=== PATIENT | male | born 1945 | race Caucasian/White ===

== ENCOUNTER 2025-03-20 11:53 | Outpatient (AMB) | payer OTHER, SELFPAY ==
--- NOTE | 2025-03-20 12:14 | A.OFFVIS_ITS ---
Intake Visit Reasons: 6 months Allergies No Known Allergies Allergy (Verified 03/15/25 18:59) Medication List - Last Reconciled 03/20/25 by Arely Henry MD amlodipine 5 mg PO DAILY gabapentin 300 mg PO BID hydrocortisone 10 mg PO QAM latanoprost 0.005% 1 drp ophthalmic (eye) BEDTIME levothyroxine 75 mcg PO DAILY sitagliptin phosphate (Januvia) 50 mg PO DAILY HPI Comments Details: 79 yo LH man with HTN, pitutary tumor surgery, and BET, who had a stroke causing bleed in December of 2020 when he was admitted in [facility] in [place]. He had a blood clot removed by surgery. 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 He was here neuropatic foot pain. Foot pain is still there and gabaentin was helping. It does not make the pain go away but controls it. He was doing okay. He was taking gabapentin twice a day and was not taking Keppra. [facility] Medical History (Updated 03/20/25 @ 12:16 by Arely Henry MD) Pituitary tumor Obesity Intracerebral hemorrhage Stroke Hypertension Surgical History (Updated 03/20/25 @ 12:16 by Arely Henry MD) H/O craniotomy Assessment & Plan Assessment & Plan (1) Neuropathic pain: Code(s): M79.2 - Neuralgia and neuritis, unspecified Category: Medical Plan: This was controlled with gabapentin 300 mg twice a day. (2) Tremor: Code(s): R25.1 - Tremor, unspecified Category: Medical Plan: Tremor was mild at did not require any medicine at this time. Plan He was not having any seizures and not taking levetiracetam. If this happens again, medicine can be restarted. Medications: New gabapentin 300 mg PO BID 180 caps 1RF Coding Level of Care Code Est Pt Level 4 (69091) Diagnoses Neuropathic pain M79.2 Tremor R25.1
--- OUTSIDE RECORDS SUMMARY | 2025-03-20 12:45 | XMS_ITS | Clinical Summary ---
Author Organization [facility] Address [address] [place] [address] Care Team Providers Care Flower Grader Name Role Phone Unavailable Primary Care Provider Unavailabl e Allergies No known active allergies Medications Medication Sig Dispensed Refills Start Date End Date Status acetaminophen (TYLENOL) 160 MG/5ML solution place 20.3 mL (650 mg total) into G Tube every 6 (six) hours. 120 mL 0 12/09/2020 Active amiodarone (PACERONE) [address] 1 tablet (200 mg total) into G Tube daily. 60 tablet 0 12/10/2020 Active amLODIPine (NORVASC) tablet [address] 1 tablet (10 mg total) into G Tube daily. 30 tablet 0 12/10/2020 Active docusate sodium (COLACE) 50 MG/5ML liquid place 10 mL (100 mg total) into G Tube 2 (two) times a day. 100 mL 0 12/09/2020 Active levETIRAcetam (KEPPRA) 100 MG/ML solution place 5 mL (500 mg total) into G Tube every 12 (twelve) hours. 473 mL 12 12/09/2020 Active levothyroxine (SYNTHROID, LEVOXYL) tablet [address] 1 tablet (75 mcg total) into G Tube every morning on an empty stomach. 30 tablet 0 12/10/2020 Active hydrocortisone (CORTEF) tablet [address] 1 tablet (10 mg total) into G Tube daily. 30 tablet 3 12/11/2020 Active hydrocortisone (CORTEF) tablet [address] 1 tablet (5 mg total) into G Tube every night at bedtime. 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 S/P craniotomy 12/09/2020 S/P percutaneous endoscopic gastrostomy (PEG) tube placement 12/09/2020 Atrial fibrillation, chronic 12/09/2020 TIA (transient ischemic attack) 12/09/2020 Subarachnoid bleed 12/01/2020 Social History Tobacco Use Types Packs/Day Years Used Date Smoking Tobacco: Never Assessed Tobacco Cessation:Counseling Given: No Alcohol Use Standard Drinks/Week Comments No 0 (1 standard drink = 0.6 oz pur e alcohol) Sex and Gender Information Value Date Recorded Sex Assigned at Male 12/01/2020 9:16 PM EDT Gender Identity Male 12/01/2020 9:16 PM EDT Sexual Orientation Not on file Job Start Date Occupation Industry Not on file Not on file Not on file Last Filed Vital Signs Vital Sign Reading Time Taken Comments Blood Pressure 120/72 04/23/2021 10:45 AM EDT Pulse 71 04/23/2021 10:45 AM EDT Temperature 37.1 C (98.7 F) 04/23/2021 10:45 AM EDT Respiratory Rate 18 01/01/2021 10:28 AM EDT Oxygen Saturation 98% 04/23/2021 10:45 AM EDT Inhaled Oxygen Concentration - - Weight 116.1 kg (256 lb) 04/23/2021 10:45 AM EDT Height 193 cm (6' 4 ) 04/23/2021 10:45 AM EDT Body Mass Index 31.16 04/23/2021 10:45 AM EDT Plan of Treatment Health Maintenance Due Date Last Done Comments Hepatitis C Screening 1945 COVID-19 Vaccine (#1) 04[birth year]28/1946 Pneumococcal Vaccine (1 of 2 - PCV) 1953 Depression Screening 1959 BMI Counseling 1965 Preventative Health Evaluation 1965 DTap / Tdap / Td (1 - Tdap) 1966 Shingrix-Zoster Vaccine (1 of 2) 1997 Fall Risk Assessment 2012 RSV Adult > 60+ Yrs or Pregn ant (1 - 1-dose 75+ series) 2022 Influenza Vaccine (Season Ended) 2025 Hepatitis B Vaccines Aged Out No long er eligible based on patient's age to complete this topic RSV Ped < 20 months Aged Out No longe r eligible based on patient's age to complete this topic Medical Devices Implanted Type Area Inside Sales Coordinator Device Identifier Shelf Expiration Date Model / Serial / Lot Sponge Surgiflo 8ml Hemostatic Matrix Absorbable Latex Free - [id number] - [id number] Implanted:Qty : 2 on 12/02/2020 by Charles Frank MD at [facility] [place] [facility] and Med Hemostatic Agent Left: Cranial [employer] 05/14/2022 [id number] / / [id number] Cellulose Surgicel 2x1in Absorbable Hemostatic Agent - [id number] - [id number] Implanted:Qty : 1 on 12/02/2020 by Charles Frank MD at [facility] [place] and Med Hemostatic Agent Left: Cranial [employer] 12/12/2022 1961 / / [id number] Cellulose Surgicel 2x1in Absorbable Hemostatic Agent - [id number] - [id number] Implanted:Qty : 1 on 12/02/2020 by Charles Frank MD at [facility] [place] and Med Hemostatic Agent Left: Cranial [employer] - A [employer] 04/13/2022 1961 / / [id number] Cover Ringgold Hole Condon Neuro Iii Low Profile Od10 Mm - [id number] - [id number] Implanted:Qty : 1 on 12/02/2020 by Charles Frank MD at [facility] [place] and Med Left: Cranial FRANK DEXBINGER [id number] / / Cover Ringgold Hole Condon Neuro Iii Low Profile Od14 Mm - [id number] - [id number] Implanted:Qty : 3 on 12/02/2020 by Charles Frank MD at [facility] [place] and Med Left: Cranial FRANK ARMANDER [id number] / / Duramatrix Onlay Plus 3x3 - [id number] - [id number] Implanted:Qty : 1 on 12/02/2020 by Charles Frank MD at [facility] and Med Left: Cranial FRANK MARY 06/13/2023 [id number] / / [id number] Screw Condon Neuro 3 4mm 1.5mm Self Drill Axial Stability - [id number] - [id number] Implanted:Qty : 16 on 12/02/2020 by Charles Frank MD at [facility] Left: Cranial [employer] [id number] / / Advance Directives For more information, please contact: [phone] Latest Code Status on File Code Status Date Activated Date Inactivated Comments Full Code 12/06/2020 6:08 PM 12/12/2020 12:12 AM This code status was ascertained in the following way: Discussion with patient . Code Status History Code Status Date Activated Date Inactivated Comments Full Code 12/01/2020 8:09 PM 12/06/2020 5:18 PM This code status was ascertained in the following way: discussion with patient .
--- OUTSIDE RECORDS SUMMARY | 2025-03-20 12:45 | XMS_ITS | Clinical Summary ---
Author Organization [facility] Address [address] [place] [address] Care Team Providers Care Service Department Manager Name Role Phone Unavailable Primary Care Provider Unavailabl e Allergies No known active allergies Medications ibuprofen 600 MG tabletIndication s:Impacted third molar tooth,Dental caries Take 1 tablet (600 mg) by mouth every 6 (six) hours if needed for mild pain for up to 20 doses. 20 tablet 11/07/2022 Active Social History Tobacco Use Types Packs/Day Years Used Date Smoking Tobacco: Never Assessed Comments Unknown Sex and Gender Information Value Date Recorded Sex Assigned at Unknown 11/07/2022 8:36 AM EST Legal Sex Male 8:26 AM EST Gender Identity Other 11/07/2022 8:36 AM EST Sexual Orientation Don't know 11/07/2022 8: 36 AM EST Plan of Treatment Health Maintenance Due Date Last Done Comments Dental Oral Exam 1945 Dental Prophylaxis 1945 Dental X-Ray: Bitewings 1945 Depression Screening 1947 Lipid Panel 1945 SDOH Screening 1947 Alcohol/Substance Use Screening 1959 Tobacco Screening 1959 Hepatitis C Screening 1965 Zoster Vaccines (1 of 2) 1997 Pneumococcal Vaccine: 50+ Years (2 of 2 - PPSV23) 06/25/2022 06/25/2021 RSV Patients and Patients Aged 60 years or older (1 - 1-dose 75+ series) 2022 COVID-19 Vaccine ( - season) 2024 02/04/2022, 02/06/2021, 12/19/2020, Additional history exists Influenza Vaccine (#1) 2025 06/25/2021, 2019 Dental X-Ray: Full Mouth 11/08/2025 11/07/2022 DTaP/Tdap/Td Vaccines (2 - Td or Tdap) 06/25/2031 06/25/2021 HIB Vaccines Aged Out No longer eligi ble based on patient's age to complete this topic HPV Vaccines Aged Out No longer eligi ble based on patient's age to complete this topic Hepatitis A Vaccines Aged Out No long er eligible based on patient's age to complete this topic Hepatitis B Vaccines Aged Out No long er eligible based on patient's age to complete this topic IPV Vaccines Aged Out No longer eligi ble based on patient's age to complete this topic Meningococcal B Vaccine Aged Out No l onger eligible based on patient's age to complete this topic Meningococcal Vaccine Aged Out No evelyn aren eligible based on patient's age to complete this topic RSV under 20 months Aged Out No longe r eligible based on patient's age to complete this topic Rotavirus Vaccines Aged Out No longer eligible based on patient's age to complete this topic Procedures Procedure Name Priority Date/Time Associated Diagnosis Comments PANORAMIC RADIOGRAPHIC IMAGE Routine 11/07/2022 10:00 AM EST Impacted third molar tooth Dental caries from Last 3 Months or Most Recently Relevant to Health Maintenance [facility] ADULT
--- OUTSIDE RECORDS SUMMARY | 2025-03-20 12:45 | XMS_ITS | Patient Health Record ---
Author Organization [facility] Address [address] [place] [address] Care Team Providers Care Pattern Room Attendant Name Role Phone KIZZY MORALESALBERTO Primary Care Provider Unavailabl e REMY MORALES Unavailable [phone] Germán Schneider Unavailable [phone] Allergies No Known Allergies Results Component Value Reference Range Notes Hemoglobin [id number] Reviewed date:02/18/2025 08:23:27 AM Interpretation: Performing Lab:[facility], [address] [facility], Phone - [phone], Director - Jessica Notes/Report: Hemoglobin A1c 6.4 4.8-5.6 % . Prediabetes: 5.7 - 6.4 Diabetes: >6.4 Glycemic control for adults with diabetes: <7.0 Lipid Panel-[id number] Reviewed date:02/18/2025 08:23:41 AM Interpretation: Performing Lab:[facility], [address] [facility], Phone - [phone], Director - Jessica Notes/Report: Cholesterol, Total 131 100-199 mg/dL Triglycerides 151 0-149 mg/dL HDL Cholesterol 44 >39 mg/dL VLDL Cholesterol Real 26 5-40 mg/dL LDL Chol Calc ([facility]) 61 0-99 mg/dL Hemoglobin [id number] Reviewed date:07/20/2024 07:44:04 AM Interpretation: Performing Lab:[facility], [address] [facility], Phone - [phone], Director - Jessica Notes/Report: Hemoglobin A1c 6.6 4.8-5.6 % . Prediabetes: 5.7 - 6.4 Diabetes: >6.4 Glycemic control for adults with diabetes: <7.0 TSH+Free [id number] Reviewed date:07/20/2024 07:44:06 AM Interpretation: Performing Lab:[facility], [address] [place] [address], Phone - [phone], Director - Jessica Notes/Report: TSH 1.010 0.450-4.500 uIU/mL T4,Free([facility]) 1.01 0.82-1.77 ng/dL Lipid Panel-[id number] Reviewed date:07/20/2024 07:44:09 AM Interpretation: Performing Lab:[facility], [address] [place] [address], Phone - [phone], Director - Jessica Notes/Report: Cholesterol, Total 141 100-199 mg/dL Triglycerides 409 0-149 mg/dL HDL Cholesterol 38 >39 mg/dL VLDL Cholesterol Real 60 5-40 mg/dL LDL Chol Calc ([facility]) 43 0-99 mg/dL Comp. Metabolic Panel ([id number] Reviewed date:07/20/2024 07:44:11 AM Interpretation: Performing Lab:[facility], [address] [place] [address], Phone - [phone], Director - Jessica Notes/Report: Glucose 116 70-99 mg/dL BUN 9 8-27 mg/dL Creatinine 1.16 0.76-1.27 mg/dL eGFR 65 >59 mL/min/1.73 BUN/Creatinine Ratio 8 10-24 Sodium 145 134-144 mmol/L Potassium 4.4 3.5-5.2 mmol/L Chloride 105 96-106 mmol/L Carbon Dioxide, Total 23 20-29 mmol/L Calcium 10.3 8.6-10.2 mg/dL Protein, Total 7.2 6.0-8.5 g/dL Albumin 4.3 3.8-4.8 g/dL Globulin, Total 2.9 1.5-4.5 g/dL Bilirubin, Total 0.6 0.0-1.2 mg/dL Alkaline Phosphatase 115 44-121 IU/L AST (SGOT) 25 0-40 IU/L ALT (SGPT) 14 0-44 IU/L Albumin/Creatinine Ratio,Uri ne-[id number] Reviewed date:07/20/2024 07:44:20 AM Interpretation: Performing Lab:[facility], [address] [place], [place] [address], Phone - [phone], Director - Jessica Notes/Report: Creatinine, Urine 173.1 Not Estab. mg/dL Albumin, Urine 33.8 Not Estab. ug/mL Alb/Creat Ratio 20 0-29 mg/g creat Normal: 0 - 29 Moderately increased: 30 - 300 Severely increased: >300 Reason For Referral No Information Medications Medication SIG (Take, Route, Frequency, Duration) Notes Start Date End Date Status Ezetimibe 10 MG 1 tablet Orally Once a day; Duration: 90 days 10/27/2024 Active amLODIPine Besylate 5 MG 1 tablet Orally Once a day; Duration: 90 days Active Levothyroxine Sodium 75 MCG 1 tablet in the morning on an empty stomach Orally Once a day Active Gabapentin 300 MG 1 capsule Orally twi ce a day Active Hydrocortisone 10 MG 1 tablet with food or milk Orally ONCE DAILY Active levETIRAcetam 250 MG 1 tablet Orally AT BEDTIME Not-Taking Immunizations Vaccine Route Administration Date Status Comme nts Fluzone High Dose 55589 IM Intramuscular 06/28/2024 Admini stered Social History Tobacco Use: Social History Observation Description Date Details (start date - stop date) Never Smoker NA - NA Tobacco Use/Smoking Question Answer Notes Are you a nonsmoker Problems Problem Type SNOMED Code ICD Code Onset Dates Problem Status W/U Status Risk Notes Problem Hypothyroidism (15926776) Hypothyroidism, unspecified (E03.9) Active confirmed Problem Disorder due to type 2 diabetes mellitus (634343767) Type 2 diabetes mellitus with unspecified complications (E11.8) Active confirmed Problem Hypopituitarism (83067409) 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) Active confirmed Problem Mixed hyperlipidemia (616622232) Mixed hyperlipidemia (E78.2) Active confirmed Problem Seizure (finding) (24481213) Other seizures (G40.89) Active confirmed Problem Cerebral infarction (856368707) Cerebral infarction, unspecified (I63.9) Active confirmed Problem Gout (79297867) Gout, unspecifie d (M10.9) Active confirmed Problem Chronic kidney disease (524085914) Chronic kidney disease, unspecified (N18.9) Active confirmed Problem Electroencephalogram abnormal (859312877) Abnormal electroencephalogram [EEG] (R94.01) Active confirmed Problem Essential hypertension (22830515) Essential (primary) hypertension (I10) Active confirmed Vital Signs Heart Rate 94 /min 02/24/2025 Temperature 97.3 degrees Fahrenheit 02/24/2025 Oximetry 99 % 02/24/2025 Blood pressure diastolic 80 mm Hg 02/24/2025 Height 6'4'' in 02/24/2025 Blood pressure systolic 118 mm Hg 02/24/2025 Weight 281.4 lbs 02/24/2025 BMI 34.25 kg/m2 02/24/2025 Encounters Encounter Location Date Provider Diagnosis [address] [place] [address] 06/28/2024 REMY MORALES Type 2 diabetes kilo itus with unspecified complications E11.8 ; Hypopituitarism E23.0 ; Essential (primary) hypertension I10 ; Hypothyroidism, unspecified E03.9 and Encounter for immunization Z23 [address] [place] [address] 10/27/2024 REMY MORALES Type 2 diabetes kilo itus with unspecified complications E11.8 ; Hypopituitarism E23.0 ; Essential (primary) hypertension I10 ; Mixed hyperlipidemia E78.2 and Hypothyroidism, unspecified E03.[address] [place] [address] 02/24/2025 Germán Schneider Hypopituitarism E23. 0 ; Essential (primary) hypertension I10 ; Abnormal electroencephalogram [EEG] R94.01 ; Type 2 diabetes mellitus with unspecified complications E11.8 ; Mixed hyperlipidemia E78.2 and Hypothyroidism, unspecified E03.[address] [place] [address] 06/28/2024 REMY MORALES [address] [place] [address] 02/10/2025 REMY MORALES Assessments Encounter Date Diagnosis (ICD Code) Assessment Notes Treatment Notes Treatment Clinical Notes Section Notes 06/28/2024 Type 2 diabetes mellitus with unspecified complications (ICD-10 - E11.8) Mr. Loza is a 78-year-old gentleman with hypopituitarism, CVA, type 2 DM diet controlled, hypertension and hypothyroidism here to establish care. Records are not available at this point and history taken from patient who is not a good historian. 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 He is on hydrocortisone 10 mg 1 tablet daily along with levothyroxine 75 mcg daily. Type II diabetes mellitus. He is not on DM medications at this point and his last A1c was 6.1. He has seen an pile driver operator for the past year. Foot care discussed. check A1c. Hypertension. Blood pressure well controled on amlodipine 5 MG once a day. Hypothyroidism. Continue Levothyroxine 75 MCG and advised to take it first thing in the morning on an empty stomach. CVA. No residual deficit. She is currently not on aspirin or statins. Blood pressure well controlled. Peripheral neuropathy. Currently on Keppra and gabapentin and symptoms are well controlled. Class 2 obesity. Advised dietary restrictions and regimental exercise. Goal is to lose 5-6 lbs a month. Eye screening. He sees his pile driver operator regularly. Skin cancer screening. He sees his stonework supervisor regularly. Immunizations. Flu shot administered in the office today. Advance directive. He is on full code and his HCP is his son Mike Loza- [phone] Screening blood work before next appointment. General health concerns discussed with patient. Scribe services used to formulate this note under HIPAA compliance and under [place] law mandated for scribe services. Patient aware of service. Verbal consent and written consent taken from the patient. Patient understands and verbalizes understanding of the scribes services and all questions answered regarding scribes services. Patient agrees to use of scribes services. 06/28/2024 Hypopituitarism (ICD-10 - E23.0) Mr. Loza is a 78-year-old gentleman with hypopituitarism, CVA, type 2 DM diet controlled, hypertension and hypothyroidism here to establish care. Records are not available at this point and history taken from patient who is not a good historian. 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 He is on hydrocortisone 10 mg 1 tablet daily along with levothyroxine 75 mcg daily. Type II diabetes mellitus. He is not on DM medications at this point and his last A1c was 6.1. He has seen an pile driver operator for the past year. Foot care discussed. check A1c. Hypertension. Blood pressure well controled on amlodipine 5 MG once a day. Hypothyroidism. Continue Levothyroxine 75 MCG and advised to take it first thing in the morning on an empty stomach. CVA. No residual deficit. She is currently not on aspirin or statins. Blood pressure well controlled. Peripheral neuropathy. Currently on Keppra and gabapentin and symptoms are well controlled. Class 2 obesity. Advised dietary restrictions and regimental exercise. Goal is to lose 5-6 lbs a month. Eye screening. He sees his pile driver operator regularly. Skin cancer screening. He sees his stonework supervisor regularly. Immunizations. Flu shot administered in the office today. Advance directive. He is on full code and his HCP is his son Mike Loza- [phone] Screening blood work before next appointment. General health concerns discussed with patient. Scribe services used to formulate this note under HIPAA compliance and under [place] law mandated for scribe services. Patient aware of service. Verbal consent and written consent taken from the patient. Patient understands and verbalizes understanding of the scribes services and all questions answered regarding scribes services. Patient agrees to use of scribes services. 10/27/2024 Type 2 diabetes mellitus with unspecified complications (ICD-10 - E11.8) Mr. Loza is a 78-year-old gentleman with hypopituitarism, CVA, type 2 DM diet controlled, hypertension and hypothyroidism here to establish care. Records are not available at this point and history taken from patient who is not a good historian. 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 He is on hydrocortisone 10 mg 1 tablet daily along with levothyroxine 75 mcg daily. Type II diabetes mellitus. He is not on DM medications at this point and his last A1c was 6.6 and fasting sugars are 116. He has seen an pile driver operator for the past year. Foot care discussed. check A1c. Mixed hyperlipidemia. His total cholesterol and LDL cholesterol are within recommended range but his triglycerides are 409. Started on Zetia 10 mg daily and recheck lipid panel in 3-6 months Hypertension. Blood pressure well controled on amlodipine 5 MG once a day. Hypothyroidism. Continue Levothyroxine 75 MCG and advised to take it first thing in the morning on an empty stomach. CVA. No residual deficit. She is currently not on aspirin or statins. Blood pressure well controlled. He follows Dr. Henry Peripheral neuropathy. Currently on Keppra and gabapentin and symptoms are well controlled. Class 2 obesity. Advised dietary restrictions and regimental exercise. Goal is to lose 5-6 lbs a month. Eye screening. He sees his pile driver operator regularly. Skin cancer screening. He sees his stonework supervisor regularly. Advance directive. He is on full code and his HCP is his son Mike Loza- [phone] Screening blood work before next appointment. General health concerns discussed with patient. 10/27/2024 Hypopituitarism (ICD-10 - E23.0) Mr. Loza is a 78-year-old gentleman with hypopituitarism, CVA, type 2 DM diet controlled, hypertension and hypothyroidism here to establish care. Records are not available at this point and history taken from patient who is not a good historian. 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 He is on hydrocortisone 10 mg 1 tablet daily along with levothyroxine 75 mcg daily. Type II diabetes mellitus. He is not on DM medications at this point and his last A1c was 6.6 and fasting sugars are 116. He has seen an pile driver operator for the past year. Foot care discussed. check A1c. Mixed hyperlipidemia. His total cholesterol and LDL cholesterol are within recommended range but his triglycerides are 409. Started on Zetia 10 mg daily and recheck lipid panel in 3-6 months Hypertension. Blood pressure well controled on amlodipine 5 MG once a day. Hypothyroidism. Continue Levothyroxine 75 MCG and advised to take it first thing in the morning on an empty stomach. CVA. No residual deficit. She is currently not on aspirin or statins. Blood pressure well controlled. He follows Dr. Henry Peripheral neuropathy. Currently on Keppra and gabapentin and symptoms are well controlled. Class 2 obesity. Advised dietary restrictions and regimental exercise. Goal is to lose 5-6 lbs a month. Eye screening. He sees his pile driver operator regularly. Skin cancer screening. He sees his stonework supervisor regularly. Advance directive. He is on full code and his HCP is his son Mike Loza- [phone] Screening blood work before next appointment. General health concerns discussed with patient. 02/24/2025 Hypopituitarism (ICD-10 - E23.0) Mr. Loza is a 79-year-old gentleman with hypopituitarism, CVA, type 2 DM diet controlled, hypertension and hypothyroidism here for follow-up. 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 He is on hydrocortisone 10 mg 1 tablet daily along with levothyroxine 75 mcg daily. Type II diabetes mellitus. He is not on DM medications at this point, Previous a1c was 6.6 improved to 6.4 and fasting sugars are 116. He has seen an pile driver operator for the past year. Foot care discussed. check A1c. Mixed hyperlipidemia. His total cholesterol and LDL cholesterol are within recommended range. Improved Trigs. continue on Zetia and diet modification. Hypertension. Blood pressure well controled on amlodipine 5 MG once a day. Hypothyroidism. Continue Levothyroxine 75 MCG and advised to take it first thing in the morning on an empty stomach. CVA. No residual deficit. She is currently not on aspirin or statins. Blood pressure well controlled. He follows Dr. Henry Peripheral neuropathy. Currently off Keppra. Continue on gabapentin and symptoms are well controlled. Class 2 obesity. Advised dietary restrictions and regimental exercise. Goal is to lose 5-6 lbs a month. Abnormal EKG: Deniens any palpitations, chest pain, dizziness. EKG shows a heart rate of 65 bpm, no ST elevation or depression. No bundle branch block. T wave inversions are noted in lead V4 and V5. No previous EKG to compare with. We will obtain stress echo. Recent blood work has been discussed with the patient General health concerns discussed with patient. Content of this note has been dictated using voice recognition software. Despite multiple revisions, Errors may persist I have rendered the services for this patient under direct supervision of Dr. Morales, who did not see the patient but was available upon request 02/24/2025 Essential (primary) hypertension (ICD-10 - I10) Mr. Loza is a 79-year-old gentleman with hypopituitarism, CVA, type 2 DM diet controlled, hypertension and hypothyroidism here for follow-up. 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 He is on hydrocortisone 10 mg 1 tablet daily along with levothyroxine 75 mcg daily. Type II diabetes mellitus. He is not on DM medications at this point, Previous a1c was 6.6 improved to 6.4 and fasting sugars are 116. He has seen an pile driver operator for the past year. Foot care discussed. check A1c. Mixed hyperlipidemia. His total cholesterol and LDL cholesterol are within recommended range. Improved Trigs. continue on Zetia and diet modification. Hypertension. Blood pressure well controled on amlodipine 5 MG once a day. Hypothyroidism. Continue Levothyroxine 75 MCG and advised to take it first thing in the morning on an empty stomach. CVA. No residual deficit. She is currently not on aspirin or statins. Blood pressure well controlled. He follows Dr. Henry Peripheral neuropathy. Currently off Keppra. Continue on gabapentin and symptoms are well controlled. Class 2 obesity. Advised dietary restrictions and regimental exercise. Goal is to lose 5-6 lbs a month. Abnormal EKG: Deniens any palpitations, chest pain, dizziness. EKG shows a heart rate of 65 bpm, no ST elevation or depression. No bundle branch block. T wave inversions are noted in lead V4 and V5. No previous EKG to compare with. We will obtain stress echo. Recent blood work has been discussed with the patient General health concerns discussed with patient. Content of this note has been dictated using voice recognition software. Despite multiple revisions, Errors may persist I have rendered the services for this patient under direct supervision of Dr. Morales, who did not see the patient but was available upon request 02/24/2025 Abnormal electroencephalogram [EEG] (ICD-10 - R94.01) Mr. Loza is a 79-year-old gentleman with hypopituitarism, CVA, type 2 DM diet controlled, hypertension and hypothyroidism here for follow-up. 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 He is on hydrocortisone 10 mg 1 tablet daily along with levothyroxine 75 mcg daily. Type II diabetes mellitus. He is not on DM medications at this point, Previous a1c was 6.6 improved to 6.4 and fasting sugars are 116. He has seen an pile driver operator for the past year. Foot care discussed. check A1c. Mixed hyperlipidemia. His total cholesterol and LDL cholesterol are within recommended range. Improved Trigs. continue on Zetia and diet modification. Hypertension. Blood pressure well controled on amlodipine 5 MG once a day. Hypothyroidism. Continue Levothyroxine 75 MCG and advised to take it first thing in the morning on an empty stomach. CVA. No residual deficit. She is currently not on aspirin or statins. Blood pressure well controlled. He follows Dr. Henry Peripheral neuropathy. Currently off Keppra. Continue on gabapentin and symptoms are well controlled. Class 2 obesity. Advised dietary restrictions and regimental exercise. Goal is to lose 5-6 lbs a month. Abnormal EKG: Deniens any palpitations, chest pain, dizziness. EKG shows a heart rate of 65 bpm, no ST elevation or depression. No bundle branch block. T wave inversions are noted in lead V4 and V5. No previous EKG to compare with. We will obtain stress echo. Recent blood work has been discussed with the patient General health concerns discussed with patient. Content of this note has been dictated using voice recognition software. Despite multiple revisions, Errors may persist I have rendered the services for this patient under direct supervision of Dr. Morales, who did not see the patient but was available upon request 10/27/2024 Essential (primary) hypertension (ICD-10 - I10) Mr. Loza is a 78-year-old gentleman with hypopituitarism, CVA, type 2 DM diet controlled, hypertension and hypothyroidism here to establish care. Records are not available at this point and history taken from patient who is not a good historian. 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 He is on hydrocortisone 10 mg 1 tablet daily along with levothyroxine 75 mcg daily. Type II diabetes mellitus. He is not on DM medications at this point and his last A1c was 6.6 and fasting sugars are 116. He has seen an pile driver operator for the past year. Foot care discussed. check A1c. Mixed hyperlipidemia. His total cholesterol and LDL cholesterol are within recommended range but his triglycerides are 409. Started on Zetia 10 mg daily and recheck lipid panel in 3-6 months Hypertension. Blood pressure well controled on amlodipine 5 MG once a day. Hypothyroidism. Continue Levothyroxine 75 MCG and advised to take it first thing in the morning on an empty stomach. CVA. No residual deficit. She is currently not on aspirin or statins. Blood pressure well controlled. He follows Dr. Henry Peripheral neuropathy. Currently on Keppra and gabapentin and symptoms are well controlled. Class 2 obesity. Advised dietary restrictions and regimental exercise. Goal is to lose 5-6 lbs a month. Eye screening. He sees his pile driver operator regularly. Skin cancer screening. He sees his stonework supervisor regularly. Advance directive. He is on full code and his HCP is his son Mike Loza- [phone] Screening blood work before next appointment. General health concerns discussed with patient. 06/28/2024 Essential (primary) hypertension (ICD-10 - I10) Mr. Loza is a 78-year-old gentleman with hypopituitarism, CVA, type 2 DM diet controlled, hypertension and hypothyroidism here to establish care. Records are not available at this point and history taken from patient who is not a good historian. 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 He is on hydrocortisone 10 mg 1 tablet daily along with levothyroxine 75 mcg daily. Type II diabetes mellitus. He is not on DM medications at this point and his last A1c was 6.1. He has seen an pile driver operator for the past year. Foot care discussed. check A1c. Hypertension. Blood pressure well controled on amlodipine 5 MG once a day. Hypothyroidism. Continue Levothyroxine 75 MCG and advised to take it first thing in the morning on an empty stomach. CVA. No residual deficit. She is currently not on aspirin or statins. Blood pressure well controlled. Peripheral neuropathy. Currently on Keppra and gabapentin and symptoms are well controlled. Class 2 obesity. Advised dietary restrictions and regimental exercise. Goal is to lose 5-6 lbs a month. Eye screening. He sees his pile driver operator regularly. Skin cancer screening. He sees his stonework supervisor regularly. Immunizations. Flu shot administered in the office today. Advance directive. He is on full code and his HCP is his son Mike Loza- [phone] Screening blood work before next appointment. General health concerns discussed with patient. Scribe services used to formulate this note under HIPAA compliance and under [place] law mandated for scribe services. Patient aware of service. Verbal consent and written consent taken from the patient. Patient understands and verbalizes understanding of the scribes services and all questions answered regarding scribes services. Patient agrees to use of scribes services. 10/27/2024 Mixed hyperlipidemia (ICD-10 - E78.2) Mr. Loza is a 78-year-old gentleman with hypopituitarism, CVA, type 2 DM diet controlled, hypertension and hypothyroidism here to establish care. Records are not available at this point and history taken from patient who is not a good historian. 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 He is on hydrocortisone 10 mg 1 tablet daily along with levothyroxine 75 mcg daily. Type II diabetes mellitus. He is not on DM medications at this point and his last A1c was 6.6 and fasting sugars are 116. He has seen an pile driver operator for the past year. Foot care discussed. check A1c. Mixed hyperlipidemia. His total cholesterol and LDL cholesterol are within recommended range but his triglycerides are 409. Started on Zetia 10 mg daily and recheck lipid panel in 3-6 months Hypertension. Blood pressure well controled on amlodipine 5 MG once a day. Hypothyroidism. Continue Levothyroxine 75 MCG and advised to take it first thing in the morning on an empty stomach. CVA. No residual deficit. She is currently not on aspirin or statins. Blood pressure well controlled. He follows Dr. Henry Peripheral neuropathy. Currently on Keppra and gabapentin and symptoms are well controlled. Class 2 obesity. Advised dietary restrictions and regimental exercise. Goal is to lose 5-6 lbs a month. Eye screening. He sees his pile driver operator regularly. Skin cancer screening. He sees his stonework supervisor regularly. Advance directive. He is on full code and his HCP is his son Mike Loza- [phone] Screening blood work before next appointment. General health concerns discussed with patient. 06/28/2024 Hypothyroidism, unspecified (ICD-10 - E03.9) Mr. Loza is a 78-year-old gentleman with hypopituitarism, CVA, type 2 DM diet controlled, hypertension and hypothyroidism here to establish care. Records are not available at this point and history taken from patient who is not a good historian. 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 He is on hydrocortisone 10 mg 1 tablet daily along with levothyroxine 75 mcg daily. Type II diabetes mellitus. He is not on DM medications at this point and his last A1c was 6.1. He has seen an pile driver operator for the past year. Foot care discussed. check A1c. Hypertension. Blood pressure well controled on amlodipine 5 MG once a day. Hypothyroidism. Continue Levothyroxine 75 MCG and advised to take it first thing in the morning on an empty stomach. CVA. No residual deficit. She is currently not on aspirin or statins. Blood pressure well controlled. Peripheral neuropathy. Currently on Keppra and gabapentin and symptoms are well controlled. Class 2 obesity. Advised dietary restrictions and regimental exercise. Goal is to lose 5-6 lbs a month. Eye screening. He sees his pile driver operator regularly. Skin cancer screening. He sees his stonework supervisor regularly. Immunizations. Flu shot administered in the office today. Advance directive. He is on full code and his HCP is his son Mike Loza- [phone] Screening blood work before next appointment. General health concerns discussed with patient. Scribe services used to formulate this note under HIPAA compliance and under [place] law mandated for scribe services. Patient aware of service. Verbal consent and written consent taken from the patient. Patient understands and verbalizes understanding of the scribes services and all questions answered regarding scribes services. Patient agrees to use of scribes services. 02/24/2025 Type 2 diabetes mellitus with unspecified complications (ICD-10 - E11.8) Mr. Loza is a 79-year-old gentleman with hypopituitarism, CVA, type 2 DM diet controlled, hypertension and hypothyroidism here for follow-up. 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 He is on hydrocortisone 10 mg 1 tablet daily along with levothyroxine 75 mcg daily. Type II diabetes mellitus. He is not on DM medications at this point, Previous a1c was 6.6 improved to 6.4 and fasting sugars are 116. He has seen an pile driver operator for the past year. Foot care discussed. check A1c. Mixed hyperlipidemia. His total cholesterol and LDL cholesterol are within recommended range. Improved Trigs. continue on Zetia and diet modification. Hypertension. Blood pressure well controled on amlodipine 5 MG once a day. Hypothyroidism. Continue Levothyroxine 75 MCG and advised to take it first thing in the morning on an empty stomach. CVA. No residual deficit. She is currently not on aspirin or statins. Blood pressure well controlled. He follows Dr. Henry Peripheral neuropathy. Currently off Keppra. Continue on gabapentin and symptoms are well controlled. Class 2 obesity. Advised dietary restrictions and regimental exercise. Goal is to lose 5-6 lbs a month. Abnormal EKG: Deniens any palpitations, chest pain, dizziness. EKG shows a heart rate of 65 bpm, no ST elevation or depression. No bundle branch block. T wave inversions are noted in lead V4 and V5. No previous EKG to compare with. We will obtain stress echo. Recent blood work has been discussed with the patient General health concerns discussed with patient. Content of this note has been dictated using voice recognition software. Despite multiple revisions, Errors may persist I have rendered the services for this patient under direct supervision of Dr. Morales, who did not see the patient but was available upon request 02/24/2025 Mixed hyperlipidemia (ICD-10 - E78.2) Mr. Loza is a 79-year-old gentleman with hypopituitarism, CVA, type 2 DM diet controlled, hypertension and hypothyroidism here for follow-up. 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 He is on hydrocortisone 10 mg 1 tablet daily along with levothyroxine 75 mcg daily. Type II diabetes mellitus. He is not on DM medications at this point, Previous a1c was 6.6 improved to 6.4 and fasting sugars are 116. He has seen an pile driver operator for the past year. Foot care discussed. check A1c. Mixed hyperlipidemia. His total cholesterol and LDL cholesterol are within recommended range. Improved Trigs. continue on Zetia and diet modification. Hypertension. Blood pressure well controled on amlodipine 5 MG once a day. Hypothyroidism. Continue Levothyroxine 75 MCG and advised to take it first thing in the morning on an empty stomach. CVA. No residual deficit. She is currently not on aspirin or statins. Blood pressure well controlled. He follows Dr. Henry Peripheral neuropathy. Currently off Keppra. Continue on gabapentin and symptoms are well controlled. Class 2 obesity. Advised dietary restrictions and regimental exercise. Goal is to lose 5-6 lbs a month. Abnormal EKG: Deniens any palpitations, chest pain, dizziness. EKG shows a heart rate of 65 bpm, no ST elevation or depression. No bundle branch block. T wave inversions are noted in lead V4 and V5. No previous EKG to compare with. We will obtain stress echo. Recent blood work has been discussed with the patient General health concerns discussed with patient. Content of this note has been dictated using voice recognition software. Despite multiple revisions, Errors may persist I have rendered the services for this patient under direct supervision of Dr. Morales, who did not see the patient but was available upon request 10/27/2024 Hypothyroidism, unspecified (ICD-10 - E03.9) Mr. Loza is a 78-year-old gentleman with hypopituitarism, CVA, type 2 DM diet controlled, hypertension and hypothyroidism here to establish care. Records are not available at this point and history taken from patient who is not a good historian. 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 He is on hydrocortisone 10 mg 1 tablet daily along with levothyroxine 75 mcg daily. Type II diabetes mellitus. He is not on DM medications at this point and his last A1c was 6.6 and fasting sugars are 116. He has seen an pile driver operator for the past year. Foot care discussed. check A1c. Mixed hyperlipidemia. His total cholesterol and LDL cholesterol are within recommended range but his triglycerides are 409. Started on Zetia 10 mg daily and recheck lipid panel in 3-6 months Hypertension. Blood pressure well controled on amlodipine 5 MG once a day. Hypothyroidism. Continue Levothyroxine 75 MCG and advised to take it first thing in the morning on an empty stomach. CVA. No residual deficit. She is currently not on aspirin or statins. Blood pressure well controlled. He follows Dr. Henry Peripheral neuropathy. Currently on Keppra and gabapentin and symptoms are well controlled. Class 2 obesity. Advised dietary restrictions and regimental exercise. Goal is to lose 5-6 lbs a month. Eye screening. He sees his pile driver operator regularly. Skin cancer screening. He sees his stonework supervisor regularly. Advance directive. He is on full code and his HCP is his son Mike Loza- [phone] Screening blood work before next appointment. General health concerns discussed with patient. 06/28/2024 Encounter for immunization (ICD-10 - Z23) Mr. Loza is a 78-year-old gentleman with hypopituitarism, CVA, type 2 DM diet controlled, hypertension and hypothyroidism here to establish care. Records are not available at this point and history taken from patient who is not a good historian. 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 He is on hydrocortisone 10 mg 1 tablet daily along with levothyroxine 75 mcg daily. Type II diabetes mellitus. He is not on DM medications at this point and his last A1c was 6.1. He has seen an pile driver operator for the past year. Foot care discussed. check A1c. Hypertension. Blood pressure well controled on amlodipine 5 MG once a day. Hypothyroidism. Continue Levothyroxine 75 MCG and advised to take it first thing in the morning on an empty stomach. CVA. No residual deficit. She is currently not on aspirin or statins. Blood pressure well controlled. Peripheral neuropathy. Currently on Keppra and gabapentin and symptoms are well controlled. Class 2 obesity. Advised dietary restrictions and regimental exercise. Goal is to lose 5-6 lbs a month. Eye screening. He sees his pile driver operator regularly. Skin cancer screening. He sees his stonework supervisor regularly. Immunizations. Flu shot administered in the office today. Advance directive. He is on full code and his HCP is his son Mike Loza- [phone] Screening blood work before next appointment. General health concerns discussed with patient. Scribe services used to formulate this note under HIPAA compliance and under [place] law mandated for scribe services. Patient aware of service. Verbal consent and written consent taken from the patient. Patient understands and verbalizes understanding of the scribes services and all questions answered regarding scribes services. Patient agrees to use of scribes services. 02/24/2025 Hypothyroidism, unspecified (ICD-10 - E03.9) Mr. Loza is a 79-year-old gentleman with hypopituitarism, CVA, type 2 DM diet controlled, hypertension and hypothyroidism here for follow-up. 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 He is on hydrocortisone 10 mg 1 tablet daily along with levothyroxine 75 mcg daily. Type II diabetes mellitus. He is not on DM medications at this point, Previous a1c was 6.6 improved to 6.4 and fasting sugars are 116. He has seen an pile driver operator for the past year. Foot care discussed. check A1c. Mixed hyperlipidemia. His total cholesterol and LDL cholesterol are within recommended range. Improved Trigs. continue on Zetia and diet modification. Hypertension. Blood pressure well controled on amlodipine 5 MG once a day. Hypothyroidism. Continue Levothyroxine 75 MCG and advised to take it first thing in the morning on an empty stomach. CVA. No residual deficit. She is currently not on aspirin or statins. Blood pressure well controlled. He follows Dr. Henry Peripheral neuropathy. Currently off Keppra. Continue on gabapentin and symptoms are well controlled. Class 2 obesity. Advised dietary restrictions and regimental exercise. Goal is to lose 5-6 lbs a month. Abnormal EKG: Deniens any palpitations, chest pain, dizziness. EKG shows a heart rate of 65 bpm, no ST elevation or depression. No bundle branch block. T wave inversions are noted in lead V4 and V5. No previous EKG to compare with. We will obtain stress echo. Recent blood work has been discussed with the patient General health concerns discussed with patient. Content of this note has been dictated using voice recognition software. Despite multiple revisions, Errors may persist I have rendered the services for this patient under direct supervision of Dr. Morales, who did not see the patient but was available upon request Plan Of Treatment Pending Test Test Name Order Date Stress Echocardiogram 02/24/2025 Future Test Test Name Order Date Hemoglobin [id number] 02/24/2025 TSH+Free [id number] 02/24/2025 Next Appt Details Provider Name:Germán linder, 08/25/2025 01:30:00 PM, [address] [place] [address], [phone], Insurance Providers Payer Name Payer Address Payer Phone Subscriber Number Group Number Insured Name Patient Relationship to Insured Coverage Start Date Coverage End Date [facility] [address] [place] [address] [id number] Jame oLza Self - patient is the insured Medical (General) History Medical History History ICD Code hypertension hypothyroidism Type 2 DM gout chronic kidney disease S/P CVA and neuropathy ands see Dr Gómez linder Surgical History Surgery Date(Month/Year) 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 stroke surgery done at [facility] right first metatarsal surgery
--- OUTSIDE RECORDS SUMMARY | 2025-03-20 12:45 | XMS_ITS | Clinical Summary ---
Author Organization [facility] Address [address] [place] [address] Care Team Providers Care Desizing Machine Operator Name Role Phone Emiliana Conner DO Primary Care Provider [phone] Medications amLODIPine (NORVASC) 5 mg tablet TAKE 1 TABLET BY MOUTH DAILY 90 tablet 08/09/2024 Active Surgical History Surgery Date Site/Laterality Comments COLONOSCOPY PROCEDURE: HISTORICAL COLONOSCOPY OTHER SURGICAL HISTORY 2002 PROCEDURE: HISTORICAL PITUITARY SURGERY Medical History Medical History Date Comments History of subarachnoid hemorrhage 05/28/2021 DX:History of subarachnoid hemorrhage History of dysphagia 05/28/2021 DX:History of dysphagia History of aphasia 05/28/2021 DX:History of aphasia History of CVA (cerebrovascu lar accident) 05/28/2021 DX:History of CVA (cerebrova scular accident) Hemiplegia (CMS/HCC V24, CMS/HCC V28) 05/28/2021 DX:Hemiplegia (HCC) HTN (hypertension) 05/28/2021 DX:HTN (hyper tension) Neurogenic bladder 05/28/2021 DX:Neurogenic bladder BPH (benign prostatic hyperplasia) 05/28/2021 DX:BPH (benign prostatic hyperplasia) Gastrostomy status (CMS/HCC V24, CMS/HCC V28) 05/28/2021 DX:Gastrostomy status (HCC) Atrial fibrillation (CMS/HCC V24, CMS/HCC V28) 05/28/2021 DX:Atrial fibrillation (HCC) Constipation 05/28/2021 DX:Constipation Type 2 diabetes mellitus (CM S/HCC V24, CMS/HCC V28) 05/28/2021 DX:Type 2 diabetes mellitus (HCC) Seizures (CMS/HCC V24, CMS/HCC V28) 05/28/2021 DX:Seizures (HCC) Hypothyroidism 05/28/2021 DX:Hypothyroidis m Family History Medical History Relation Name Comments No Known Problems Brother No Known Problems Daughter No Known Problems Father No Known Problems Mother No Known Problems Other No Known Problems Sister No Known Problems Son x3 Autoimmune disease Neg Hx Breast cancer Neg Hx Colon cancer Neg Hx Coronary artery disease Neg Hx Diabetes Neg Hx Heart attack Neg Hx Heart failure Neg Hx Hyperlipidemia Neg Hx Hypertension Neg Hx Mental illness Neg Hx Prostate cancer Neg Hx Sleep apnea Neg Hx Thyroid disease Neg Hx Relation Name Status Comments Brother Daughter Father Mother Other Sister Son x3 Alive Social History Tobacco Use Types Packs/Day Years Used Date Smoking Tobacco: Never Smokeless Tobacco: Never Alcohol Use Standard Drinks/Week Comments Not Currently 0 (1 standard drink = 0.6 oz pur e alcohol) Sex and Gender Information Value Date Recorded Sex Assigned at Not on file Legal Sex Male 6:24 AM EST Gender Identity Not on file Sexual Orientation Not on file Obstetrics History Last Filed Vital Signs Vital Sign Reading Time Taken Comments Blood Pressure 119/86 03/14/2024 2:05 PM EDT Pulse 75 03/14/2024 2:05 PM EDT Temperature - - Respiratory Rate - - Oxygen Saturation - - Inhaled Oxygen Concentration - - Weight 129 kg (283 lb 9.6 oz) 03/14/2024 2:05 PM EDT Height 193 cm (6' 4 ) 03/14/2024 2:05 PM EDT Body Mass Index 34.52 03/14/2024 2:05 PM EDT Plan of Treatment Health Maintenance Due Date Last Done Comments Diabetes: Annual Foot Exam 1957 Diabetes: Annual Retina Eye Exam 1957 Zoster Vaccines (1 of 2) 1997 Diabetes: Annual GFR (Glomerular Filtration Rate) 12/10/2021 12/10/2020, 12/07/2020, 12/06/2020, Additional history exists Cholesterol Screening (Lipid Panel) 08/22/2022 Depression Screening 08/22/2022 Falls Risk Assessment 08/22/2022 Hepatitis C Screening 08/22/2022 Social Influencers of Health Screening 08/22/2022 Hypertension/CHF/CAD Annual BMP Blood Test 08/23/2022 12/10/2020, 12/07/2020, 12/06/2020, Additional history exists Diabetes: Annual Urine Albumin-Creatinine Ratio (uACR) 08/28/2022 Diabetes: Blood Sugar Control Test (HGBA1C) 08/28/2022 12/10/2020 RSV Immunization Adult Patients (1 - 1-dose 75+ series) 2022 COVID-19 Vaccine ( season) 2024 02/06/2021, 12/19/2020, 11/20/2020 Influenza Vaccine (#1) 2025 06/25/2021, 2019 Colorectal Cancer Screening: Colonoscopy 09/11/2025 09/11/2022 DTaP,Tdap,and Td Vaccines (2 - Td or Tdap) 06/25/2031 06/25/2021 Pneumococcal Vaccine: 50+ Years Completed 04/15/2023, 06/25/2021 HIB Vaccines Aged Out No longer [...] on patient's age to complete this topic MMR Vaccines Aged Out No longer eligi ble based on patient's age to complete this topic Meningococcal ACWY Vaccine Aged Out N o longer eligible based on patient's age to complete this topic Meningococcal B Vaccine Aged Out No l onger eligible based on patient's age to complete this topic RSV Immunization Patients Under 20 months Aged Out No longer eligible based on patient's age to complete this topic Varicella Vaccines Aged Out No longer eligible based on patient's age to complete this topic Medical Devices Implanted Type Area Stevedoring Superintendent Device Identifier Shelf Expiration Date Model / Serial / Lot Sponge Surgiflo 8ml Hemostatic Matrix Absorbable Latex Free - [id number] Implanted:Qty: 2 on 12/02/2020 by Charles Frank MD Implants Left: Cranial [employer] MARY 05/14/2022 [id number] / / [id number] Cellulose Surgicel 2x1in Absorbable Hemostatic Agent - [id number] Implanted:Qty: 1 on 12/02/2020 by Charles Frank MD Implants Left: Cranial [employer] 12/12/20221960 / / [id number] Cellulose Surgicel 2x1in Absorbable Hemostatic Agent - [id number] Implanted:Qty: 1 on 12/02/2020 by Charles Frank MD Implants Left: Cranial [employer] 04/13/20221960 / / [id number] Cover [place] Neuro Iii Low Profile Od10 Mm - [id number] Implanted:Qty: 1 on 12/02/2020 by Charles Frank MD Left: Cranial FERNANDA LEIBINGER [id number] / / Cover Memo Hole [place] Neuro Iii Low Profile Od14 Mm - [id number] Implanted:Qty: 3 on 12/02/2020 by Charles Frank MD Left: Cranial FERNANDA LEIBINGER [id number] / / Duramatrix [place] Plus 3x3 - [id number] Implanted:Qty: 1 on 12/02/2020 by Charles Frank MD Left: Cranial FERNANDA - MEDICAL 06/13/2023 [id number] / / [id number] Screw [place] Neuro 3 4mm 1.5mm Self Drill Axial Stability - [id number] Implanted:Qty: 16 on 12/02/2020 by Charles Frank MD Left: Cranial [employer] [id number] / / Care Teams Desizing Machine Operator Relationship Specialty Start Date End Date Emiliana Conner DO [address] [place] [address] PCP - General Internal Medicine 08/09/24
== END 2025-03-20 12:21 | disposition home or self-care (01) ==
LOC: HO.HSM 11:54
PROVIDERS: PCP Internal Medicine; Visit Provider Psychiatry & Neurology Neurology
DX: M79.2 Neuralgia and neuritis, unspecified (principal); R25.1 Tremor, unspecified
CPT/HCPCS: 99214

== ENCOUNTER 2025-08-02 14:50 | Outpatient (AMB) | payer MEDICARE, SELFPAY ==
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
--- OUTSIDE RECORDS SUMMARY | 2025-08-03 03:25 | XMS_ITS | Clinical Summary ---
Author Organization [facility] Address [address] [place] [address] Care Team Providers Care Book Solicitor Name Role Phone Unavailable Primary Care Provider [...] Sex Male 8:26 AM EST Gender Identity Not Listed 11/07/2022 8:36 AM EST Sexual Orientation Don't [...] Vaccine: 50+ Years (2 of 2 - PCV20 or PCV21) 06/25/2022 06/25/2021 RSV Patients and Patients Aged 60 years or older (1 - 1-dose 75+ series) 2022 COVID-19 Vaccine ( - season) 2025 02/04/2022, 02/06/2021, 12/19/2020, Additional history exists Influenza [...] Most Recently Relevant to Health Maintenance Insurance [facility] STAND ADULT
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
--- OUTSIDE RECORDS SUMMARY | 2025-08-03 03:25 | XMS_ITS | Clinical Summary ---
Author Organization [facility] Address [address] [place] [address] Care Team Providers Care Compensation Advisor Name Role Phone Unavailable Primary Care Provider [...] - 1-dose 75+ series) 2022 Influenza Vaccine (#1) 2025 Hepatitis B Vaccines Aged Out No long er eligible based on patient's age to complete this topic RSV Ped < 20 months Aged Out No longe r eligible based on patient's age to complete this topic Medical Devices Implanted Type Area Bumper Straightener Device Identifier Shelf Expiration Date Model / Serial / Lot Sponge Surgiflo 8ml Hemostatic Matrix Absorbable Latex Free - [id number] - [id number] Implanted:Qty : 2 on 12/02/2020 by Charles Frank MD at [facility] Hemostatic Agent Left: Cranial [employer] 05/14/2022 2991 / / [id number] Cellulose Surgicel 2x1in Absorbable Hemostatic Agent - [id number] - [id number] Implanted:Qty : 1 on 12/02/2020 by Charles Frank MD at [facility] and Med Hemostatic Agent Left: Cranial [employer] - [employer] 12/12/2022 1961 / / [id number] Cellulose Surgicel 2x1in Absorbable Hemostatic Agent - [id number] - [id number] Implanted:Qty : 1 on 12/02/2020 by Charles Frank MD at [facility] and [facility] Hemostatic Agent Left: Cranial [employer] - [employer] 04/13/2022 1961 / / [id number] Cover Memo Hole Ventura Neuro Iii Low Profile Od10 Mm - [id number] - [id number] Implanted:Qty : 1 on 12/02/2020 by Charles Frank MD at [facility] and Med Left: Cranial FRANK DEXBINGER [id number] / / Cover Erick Hole Ventura Neuro Iii Low Profile Od14 Mm - [id number] - [id number] Implanted:Qty : 3 on 12/02/2020 by Charles Frank MD at [facility] and Med Left: Cranial FRANK ARMANDER [id number] / / Duramatrix Onlay Plus 3x3 - [id number] - [id number] Implanted:Qty : 1 on 12/02/2020 by Charles Frank MD at [facility] and Med Left: Cranial FRANK MARY 06/13/2023 [id number] / / [id number] Screw Ventura Neuro 3 4mm 1.5mm Self Drill Axial Stability - [id number] - [id number] Implanted:Qty : 16 on 12/02/2020 by Charles Frank MD at [facility] and [facility] Left: Cranial [employer] [id number] / / Advance Directives For more information, please contact: [phone] Latest Code Status on File Code Status [...]
== END 2025-08-02 15:30 | disposition home or self-care (01) ==
LOC: HO.HSM 14:50
PROVIDERS: PCP Internal Medicine; Visit Provider Psychiatry & Neurology Neurology
DX: M79.2 Neuralgia and neuritis, unspecified (principal); R25.1 Tremor, unspecified
CPT/HCPCS: 99213

== ENCOUNTER → 2025-08-02 14:50 | Outpatient (BNVA) | payer MEDICARE, SELFPAY | PROVIDERS: PCP Internal Medicine; Visit Provider Psychiatry & Neurology Neurology | DX: M79.2 Neuralgia and neuritis, unspecified (principal); R25.1 Tremor, unspecified; I10 Essential (primary) hypertension; Z79.01 Long term (current) use of anticoagulants; Z79.82 Long term (current) use of aspirin; G40.909 Epilepsy, unspecified, not intractable, without status epilepticus | CPT/HCPCS: 99212 ==